=== PATIENT | female | born 1950 | race Hispanic/Latino ===

== ENCOUNTER 2019-01-11 10:27 | Observation (INO) | payer MEDICARE ==
--- NOTE | 2019-01-05 13:38 | Anesthesia Consultation ---
Anesthesia Consult and Med Hx Date of service: 01/12/19 - Airway Anesthetic Teeth Evaluation: Good, Partials ROM Head & Neck: Adequate Mental/Hyoid Distance: Adequate Mallampati Class: Class II Intubation Access Assessment: Good - Pre-Operative Health Status ASA Pre-Surgery Classification: ASA3 Proposed Anesthetic Plan: General, Spinal (SAB, GA if needed) - Pulmonary Hx Smoking: No Hx Sleep Apnea: No (SADIE PRE SCREEN HIGH RISK) - Cardiovascular System Hx Hypertension: Yes (SINCE . +Cardiac clearance) Hx Coronary Artery Disease: No - Central Nervous System Hx Psychiatric Problems: Yes (Depression) - Gastrointestinal Hx Ulcer: Yes - Endocrine Hx Renal Disease: Yes (Has UTI and on ABX) Hx Insulin Dependent Diabetes: Yes - Other Systems Hx Cancer: No - Additional Comments Anesthesia Medical History Comments: Had shoulder surgery at [facility] in 2003 and was admitted to hospital for low BP. Lexiscan 12/15 no ischemia; ECHO 12/25 normal mild LVH
[2019-01-09 10:57] LABS: Bacteria,Urine 1+ /HPF (Negative); Bilirubin,Urine NEG (Negative); Blood,Urine NEG (Negative); Color,Urine Yellow (Yellow); Mucus,Urine FEW /HPF; Protein,Urine <15 mg/dL mg/dL (Negative); Urobilinogen,Urine < 2.0 mg/dL (<2.0)
[~2019-01-11 10:27] MED LIST: BACITRACIN IR ONE; CLORPACTIN WCS-90 IR ONE; MARCAINE 0.25% INFILTRATI ONE; MORPHINE IM ONE; NACL 0.9% IV ONE; POLYMYXIN B SULFATE IV ONE; TORADOL PO ONE
[2019-01-11] MEDS ORDERED: TRANEXAMIC ACID ONE (11:17)
[2019-01-11] MEDS ORDERED: MARCAINE 0.25% INFILTRATI ONE ×2 (11:17→15:37)
[2019-01-11] MEDS ORDERED: TORADOL ONE (11:17)
[2019-01-11] MEDS ORDERED: MORPHINE ONE (11:18)
[2019-01-11] MEDS ORDERED: POLYMYXIN B SULFATE IV ONE ×2 (11:18→15:20)
[2019-01-11] MEDS ORDERED: NACL 0.9% 200 ML ONE (11:18)
[2019-01-11] MEDS ORDERED: CLORPACTIN WCS-90 IR ONE ×2 (11:18→15:30)
[2019-01-11] MEDS ORDERED: BACITRACIN ONE (11:32)
--- NOTE | 2019-01-11 11:38 | Anesthesia Day of Surgery ---
Anesthesia Day of Surgery - Day of Surgery Patient Examined: Yes Patient H&P Reviewed: Yes Patient is NPO: Yes
[2019-01-11] MEDS ORDERED: NACL 0.9% 1000 ML 1,000 ML ONE ×2 (12:02→17:34)
[2019-01-11] MEDS ORDERED: ANCEF/STERILE WATER 2 GM/20 ML IV NR (13:00)
[2019-01-11] MEDS ORDERED: MARCAINE-EPI 0.5%-1:200,000 INFILTRATI ONE (13:25)
[2019-01-11] MEDS ORDERED: ZEMURON IV ONE (13:28)
[2019-01-11] MEDS ORDERED: XYLOCAINE MPF 2% ONE (13:28)
[2019-01-11] MEDS ORDERED: DIPRIVAN 10 MG/ML IV ONE (13:29)
[2019-01-11] MEDS ORDERED: SUBLIMAZE ONE (13:29)
[2019-01-11] MEDS ORDERED: TRANEXAMIC ACID IV ONE (13:45)
[2019-01-11] MEDS ORDERED: NACL 0.9% IV ONE (13:45)
[2019-01-11] MEDS ORDERED: ZOFRAN IV PRN ×3 (13:53→17:06)
[2019-01-11] MEDS ORDERED: ROBINUL ONE (13:53)
[2019-01-11] MEDS ORDERED: PHENYLEPHRINE/NS Syringe 1,000 MCG/10 ML IV ONE (13:53)
[2019-01-11] MEDS ORDERED: SODIUM CHLORIDE FLUSH SYRINGE 10 ML IV PRN (13:53)
[2019-01-11] MEDS ORDERED: PROVENTIL IH PRN (13:53)
[2019-01-11] MEDS ORDERED: DECADRON ONE (13:53)
[2019-01-11] MEDS ORDERED: ZOFRAN ONE (13:53)
[2019-01-11] MEDS ORDERED: PERCOCET 5/325 PO PRN (13:53)
[2019-01-11] MEDS ORDERED: BLOXIVERZ ONE (13:53)
--- NOTE | 2019-01-11 13:57 | History and Physical Report ---
History of Present Illness Date of admission: 01/11/19 13:47 Chief complaint: My knee was hurting History of present illness: 68 YO Female with MO, Obesity Hypoventilation, GERD, Depression, HTN, DJD admitted directly at the request of Dr. Herrmann. Pt seen and evaluated upon arrival to her room. Pt deneis fever, chills, CP, palpitations, NVD, Trauma, Productive cough, or recent ill contacts. Pt denies pain. No reported nursing event. Pt found to have evidence of UTI and treated wit IV antibiotic therapy. Past History Past Medical History: other (see hpi) Past Surgical History: total knee replacement Social history: , lives with family. denies: smoking, alcohol abuse, prescription drug abuse Family history: hypertension Medications and Allergies Allergies Allergy/AdvReac Type Severity Reaction Status Date / Time codeine Allergy Anaphylaxis Verified 12/30/18 10:41 shellfish derived Allergy Anaphylaxis Verified 12/30/18 10:41 shrimp Allergy Anaphylaxis Verified 12/30/18 10:41 milk AdvReac Diarrhea Verified 12/30/18 10:41 Home Medications Medication Instructions Recorded Confirmed Last Taken Type Calcium Carbonate [Calcium 600MG 600 mg PO DAILY 12/30/18 01/11/19 01/10/19 09:00 History TAB] Cholecalciferol (Vitamin D3) 2,000 unit PO QDAY 12/30/18 01/11/19 01/10/19 09:00 History [Vitamin D3 2,000 UNIT CAP] Citalopram [celeXA] 10 mg PO QDAY 12/30/18 01/11/19 01/10/19 09:00 History Gabapentin [Neurontin] 300 mg PO QHS 12/30/18 01/11/19 01/11/19 09:00 History Insulin Detemir [Levemir VIAL] 28 unit SQ BID 12/30/18 01/11/19 01/10/19 18:00 History Lispro Insulin [HumaLOG] 18 unit SQ TID 12/30/18 01/11/19 01/10/19 18:00 History Losartan/Hydrochlorothiazide 1 each PO DAILY 12/30/18 01/11/19 01/10/19 09:00 History [Losartan-Hctz 100-25 mg Tab] Lovastatin [Altoprev] 40 mg PO DAILY 12/30/18 01/11/19 01/10/19 09:00 History Magnesium Oxide [Magnesium] 400 mg PO DAILY 12/30/18 01/11/19 01/10/19 09:00 History Metoprolol [Lopressor TAB] 50 mg PO DAILY 12/30/18 01/11/19 01/11/19 09:00 History Multivit-Min/Iron/Folic/Zam960 1 each PO DAILY 12/30/18 01/11/19 01/10/19 09:00 History [Hair, Skin and Nails Caplet] Oxybutynin [Ditropan] 5 mg PO BID 12/30/18 01/11/19 01/10/19 09:00 History Apixaban [Eliquis] 2.5 mg PO Q12HR #24 tablet 01/12/19 Unknown Rx Aspirin [Adult Aspirin] 81 mg PO DAILY #30 01/12/19 Unknown Rx Calcium Carbonate [Tums 500MG CHEW] 500 mg PO QDAY #30 tablet 01/12/19 Unknown Rx Magnesium Oxide [Mag-Ox] 400 mg PO QDAY #7 tablet 01/12/19 Unknown Rx Pravastatin [Pravachol] 40 mg PO QHS #30 tablet 01/12/19 Unknown Rx oxyCODONE /ACETAMINOPHEN [Percocet 1 tab PO Q6H PRN #10 tablet 01/12/19 Unknown Rx 5/325 mg] Active Meds: Active Medications Cefazolin Sodium (Ancef/Sterile Water 2 Gm/20 Ml) 2 gm IV PREOP NR Stop: 01/11/19 23:59 Review of Systems Constitutional: no weight loss, no weight gain, no fever, no chills Ears, nose, mouth and throat: no ear pain, no ear discharge, no tinnitis, no nose pain, no nasal congestion, no nasal discharge Breasts: no change in shape, no swelling, no mass Cardiovascular: no chest pain, no orthopnea, no rapid/irregular heart beat, no edema, no syncope Respiratory: no cough, no cough with sputum, no shortness of breath Gastrointestinal: no nausea, no vomiting, no diarrhea, no constipation, no change in bowel habits, no hematemesis Genitourinary Female: no pelvic pain, no flank pain, no menorrhagia, no dysuria, no urinary frequency, no stress incontinence, no post void dribbling, no incomplete emptying, no mixed incontinence Rectal: no pain, no incontinence, no bleeding Musculoskeletal: no neck stiffness, no neck pain, no arm numbness/tingling, no leg numbness/tingling Integumentary: no rash, no pruritis, no redness, no sores, no wounds, no jaundice Neurological: no transient paralysis, no paralysis, no weakness, no parathesias, no numbness, no tingling, no seizures, no syncope Psychiatric: no anxiety, no memory loss, no change in sleep habits, no sleep disturbances, no insomnia, no hypersomnia Endocrine: no cold intolerance, no heat intolerance, no polyphagia, no excessive thirst, no polydipsia, no polyuria, no excessive sweating, no flushing Hematologic/Lymphatic: no easy bruising, no easy bleeding, no lymphadenopathy, no lymphedema Allergic/Immunologic: no urticaria, no allergic rhinitis, no wheezing, no persistent infections, no anaphylaxis, no angioedema Exam - Constitutional Vitals: Temp Pulse Resp BP Pulse Ox 97.8 F 58 L 20 175/73 99 01/05/19 13:00 01/05/19 13:00 01/05/19 13:00 01/05/19 13:00 01/05/19 13:00 General appearance: Present: no acute distress, obese - EENT Eyes: Present: PERRL ENT: hearing intact, clear oral mucosa - Neck Neck: Present: supple, normal ROM - Respiratory Respiratory effort: normal Respiratory: bilateral: CTA - Cardiovascular Heart Sounds: Present: S1 & S2. Absent: rub, click - Extremities Extremities: pulses symmetrical, No edema Peripheral Pulses: within normal limits - Abdominal General gastrointestinal: Present: soft, non-tender, non-distended, normal bowel sounds Female genitourinary: Present: normal - Integumentary Integumentary: Present: clear, warm, dry - Musculoskeletal Musculoskeletal: gait normal, strength equal bilaterally - Psychiatric Psychiatric: appropriate mood/affect, intact judgment & insight - Neurologic Neurologic: CNII-XII intact, moves all extremities Results - Labs CBC & Chem 7: 01/12/19 07:19 01/12/19 07:19 Labs: Abnormal lab results 01/11/19 Range/Units 11:46 POC Glucose 159 H (70-105) Assessment and Plan - Patient Problems (1) DJD (degenerative joint disease) Current Visit: Yes Status: Acute Plan to address problem: S/P Total Knee Replacement. (2) HTN (hypertension) Current Visit: Yes Status: Acute Qualifiers: Hypertension type: essential hypertension Qualified Code(s): I10 - Essential (primary) hypertension Plan to address problem: monitor BP q shift, continue medical management (3) UTI (urinary tract infection) Current Visit: Yes Status: Acute Qualifiers: Encounter type: initial encounter Plan to address problem: IV antibiotic therapy, CBc, urinalysis (4) Obesity hypoventilation syndrome Current Visit: Yes Status: Acute Plan to address problem: supplemental oxygen, nebulizer therapy, pulse oximetry, early ambulation, (5) DVT prophylaxis Current Visit: Yes Status: Acute Plan to address problem: SCD to BLE while in bed, prophylaxis as per ortho surgery.
[2019-01-11] MEDS ORDERED: D50W (25GM) Syringe IV PRN (15:00)
[2019-01-11] MEDS ORDERED: TYLENOL PO PRN (15:00)
[2019-01-11] MEDS ORDERED: BACITRACIN IR ONE (15:20)
[2019-01-11] MEDS ORDERED: TORADOL IV ONE (15:37)
[2019-01-11] MEDS ORDERED: MORPHINE IM ONE (15:37)
[2019-01-11] MEDS ORDERED: DILAUDID ONE (15:58)
[2019-01-11] MEDS ORDERED: MILK OF MAGNESIA PO PRN (16:13)
[2019-01-11] MEDS ORDERED: PHENERGAN PR PRN (16:13)
[2019-01-11] MEDS ORDERED: NORCO 7.5/325 PO PRN (16:21)
--- NOTE | 2019-01-11 16:24 | Progress Note ---
Subjective Date of service: 01/11/19 Interval history: S/PTKA right side Pillow under ankl;e Ice pacs PT/OT DVT PROPHYLAXSIS Objective Vital signs: Vital Signs - 12hr 01/11/19 01/11/19 10:54 11:00 Temperature 98.2 F 98.2 F Pulse Rate 69 69 Respiratory 20 20 Rate Blood Pressure 177/73 177/73 O2 Sat by Pulse 97 97 Oximetry - Labs Labs: Abnormal lab results 01/11/19 Range/Units 11:46 POC Glucose 159 H (70-105)
[2019-01-11] MEDS ORDERED: SODIUM CHLORIDE FLUSH SYRINGE 10 ML IV NR (17:00)
[2019-01-11] MEDS: DILAUDID IV PRN ×2 (17:14→17:24)
--- NOTE | 2019-01-11 17:40 | XRay Report ---
RIGHT KNEE 2 VIEWS INDICATION / CLINICAL INFORMATION: Postop TKA COMPARISON: None available. FINDINGS: BONES / JOINT(S): No acute fracture or subluxation. Status post right total knee arthroplasty SOFT TISSUES: Postoperative changes are noted in the soft tissue ADDITIONAL FINDINGS: None. Signer Name: Gregory Abarca MD Signed: 01/11/2019 5:36 PM Workstation Name: [id number]
--- NOTE | 2019-01-11 17:50 | Post Anesthesia Evaluation ---
- Post Anesthesia Evaluation Patient Participated: Yes Airway Patent: Yes Stable Respiratory Function: Yes Nausea/Vomiting: No Temp > 96.8F: Yes Pain Manageable: Yes Adequeate Hydration: Yes Anesthesia Complications: No Block Receding Appropriately: Not Applicable Patient on Ventilator: No
[2019-01-11] MEDS: TORADOL IV SCH ×2 (18:26→23:30)
[2019-01-11] MEDS: NACL 0.9% 1000 ML 1,000 ML IV SCH (18:27)
[2019-01-11] MEDS: HumaLOG SUB-Q SCH (18:45)
--- NOTE | 2019-01-11 21:13 | Operative Report ---
PREOPERATIVE DIAGNOSES: 1. Severe advanced osteoarthritis, right knee joint. 2. Varus deformity, right knee fixed varus deformity. POSTOPERATIVE DIAGNOSES: 1. Severe advanced osteoarthritis, right knee joint. 2. Fixed flexion deformity, right knee. 3. Obesity. 4. Synovial hypertrophy, synovial proliferation. PROCEDURES PERFORMED: 1. Right total knee replacement. 2. Partial synovectomy, right knee joint. COMPLICATIONS: None. BLOOD LOSS: Minimal. IMPLANTS USED: Garcia and Nephew Legion Oxinium femoral component, size 4 narrow right side, tibial tray size 3, Prolong Poly-S, polyethylene liner 9 mm, patella 29 mm, 3 post 7.5 mm thick. Cement Palacos R+G. BRIEF HISTORY: The patient had a painful right knee arthritic knee, severe advanced arthritis, failed conservative treatment, opted to go for surgical intervention. Risks, benefit discussed, informed consent obtained, brought to the hospital for the procedure. DETAILS OF THE OPERATIVE REPORT: The patient was taken to the operating room. After smooth general endotracheal anesthesia, all the bony prominences were carefully padded, placed supine on the operating table. Thigh tourniquet was placed. Right knee, right lower extremity prepped and draped in sterile fashion. Antibiotic given 3 grams Ancef half an hour before the procedure along with a gram of TXA. Leg elevated, Esmarch used and tourniquet inflated to 350 mmHg. Longitudinal incision made over anterior aspect of the knee, exposing extensive mechanism. Arthrotomy performed. Patella displaced laterally. Gross finding revealed severe advanced degenerative arthritis. Subperiosteal dissection was continued around the proximal medial tibia as necessary. Soft tissue release was performed to correct the fixed angular deformity. Drill was used to open the femoral canal. Distal intramedullary femoral cutting guide was placed. Distal femur resected 5-degree valgus angle. Epicondylar access apex was determined. Femoral sizing guide was placed, appropriate components selected. Anteroposterior condyles were then resected with oscillating saw. Extramedullary tibial cutting guide was placed, proximal tibia resected perpendicular to the long axis of tibia. Lamina spreaders placed between femur and tibia. Arthritic ACL and PCL ligaments were removed. Medial and lateral meniscectomy performed. Posterior osteophytes on the medial side was removed as well. Once this was done, gap balancing was achieved by doing appropriate release on the medial side. Once this was achieved, alignment checked with alignment starla. Tibia was then prepared by tibial reaming broach system by placing the tibial tray in proper position, proper external rotation. Femur was then prepared for the box using Garcia and Nephew trial femur using reaming and punch technique. Trial liner was then placed to get 9 liner. We had great stability, full extension, full flexion, stable throughout range of motion. No signs of instability. Patella was prepared by patellar reaming system prepared for three post-patella. Prepatellar thickness 22 mm, post-patellar thickness ____ mm. Osteophytes around the patella was removed. Synovium excised as well. Patella tracked central throughout range of motion. Trial components were then removed. We thoroughly washed the knee area with antibiotic-soaked normal saline followed by normal saline and cementing of the knee was performed. Tibia was cemented first set in proper position, proper external rotation and packed in place. Excess cement was removed. Femur was then cemented in proper position, proper external rotation and packed in place. Excess cement was removed. Trial liner was then placed, cementing of the patella performed, compressed in place. Excess cement removed. Once the cement was hardened, real tibial articulating surface was implanted and locked in place. Knee again moved through range of motion and found to be extremely stable. Throughout range of motion, patella tracked central. Tourniquet released. Hemostasis achieved. No active bleeder as such. Thorough washing was performed with antibiotic-soaked normal saline. Clorpactin followed by normal saline and arthrotomy closed with a combination of 0 Vicryl sutures and #2 Quill sutures, subcutaneous tissue closed with 0 and 2-0 Vicryl interrupted sutures. Given the tenuous soft tissue on the inferior aspect of the arthrotomy where there was more fatty tissue and the tissue was not of good quality, they were supplemented with #2 nylon on the inferior part as well with three stitches. Good closure was commenced. Subcutaneous tissue was closed with 0 and 2-0 Vicryl interrupted sutures. Skin was closed with Monocryl. Aquacel dressing done. Jeremy wrap applied. The patient tolerated the procedure well, shifted to recovery room in stable condition. Sponge and needle count was correct. JOB# [id number] SK/NTS
[2019-01-11] MEDS ORDERED: NEURONTIN PO SCH (22:00)
[2019-01-11] MEDS ORDERED: PRAVACHOL PO SCH (22:00)
[2019-01-11] MEDS: NEURONTIN PO SCH (22:47)
[2019-01-11] MEDS: ELIQUIS PO SCH (22:48)
[2019-01-11] MEDS: DITROPAN PO SCH (22:48)
[2019-01-11] MEDS: ceFAZolin 3 GM in NACL 0.9% 100 ML IV NR (23:02)
[2019-01-12] MEDS ORDERED: ANCEF/STERILE WATER 2 GM/20 ML IV NR (00:01)
[2019-01-12] MEDS: SODIUM CHLORIDE FLUSH SYRINGE 10 ML IV SCH ×2 (00:13→15:14)
[2019-01-12] MEDS: HumaLOG SUB-Q SCH ×3 (00:19→15:17)
[2019-01-12] MEDS: TORADOL IV SCH ×2 (06:05→12:39)
[2019-01-12] MEDS: ceFAZolin 3 GM in NACL 0.9% 100 ML IV NR (06:06)
[2019-01-12] MEDS: NACL 0.9% 1000 ML 1,000 ML IV SCH (06:07)
[2019-01-12] MEDS: NEURONTIN PO SCH ×2 (06:16→15:18)
[2019-01-12 07:42] LABS: Hemoglobin 11.6 gm/dl (10.1-14.3)
[2019-01-12 08:16] LABS: BUN/Creatinine Ratio 23; Blood Urea Nitrogen 16 mg/dL (7-17); Calcium 7.8 mg/dL (8.4-10.2); Hemolysis Index 11
[2019-01-12] MEDS ORDERED: TOPROL XL PO SCH (10:00)
[2019-01-12] MEDS ORDERED: [UNRECOGNIZED DRUG - OTHER] PO SCH (10:00)
[2019-01-12] MEDS ORDERED: ROCEPHIN/NS 1 GM/50 ML 1 GM/50 ML BAG IV SCH (10:00)
[2019-01-12] MEDS ORDERED: celeXA PO SCH (10:00)
[2019-01-12] MEDS ORDERED: NON-FORMULARY (Lovastatin [Altoprev] 40 MG) PO SCH (10:00)
[2019-01-12] MEDS ORDERED: VITAMIN D3 PO SCH (10:00)
[2019-01-12] MEDS ORDERED: IRON PO SCH (10:00)
[2019-01-12] MEDS ORDERED: NON-FORMULARY (Losartan/Hydrochlorothiazide [Losartan-Hctz 100-25 Mg Tab] 1 EACH) PO SCH (10:00)
[2019-01-12] MEDS ORDERED: MAG-OX PO SCH (10:00)
[2019-01-12] MEDS ORDERED: MAGNESIUM OXIDE 400 MG PO SCH (10:00)
[2019-01-12] MEDS ORDERED: TUMS PO SCH (10:00)
[2019-01-12] MEDS ORDERED: THERAGRAN Tab PO SCH (10:00)
[2019-01-12] MEDS ORDERED: NON-FORMULARY (Cholecalciferol (Vitamin D3) [Vitamin D3 2,000 Unit Cap] 2,000 UNIT) PO SCH (10:00)
[2019-01-12] MEDS ORDERED: FOLIC PO SCH (10:00)
[2019-01-12] MEDS ORDERED: COZAAR PO SCH (10:00)
[2019-01-12] MEDS ORDERED: HCTZ PO SCH (10:00)
[2019-01-12] MEDS ORDERED: MULTIVIT MIN PO SCH (10:00)
[2019-01-12] MEDS ORDERED: NON-FORMULARY (Calcium Carbonate [Calcium 600mg Tab] 600 MG) PO SCH (10:00)
[2019-01-12] MEDS: DITROPAN PO SCH (10:41)
[2019-01-12] MEDS: ELIQUIS PO SCH (10:47)
--- NOTE | 2019-01-12 11:39 | Progress Note ---
Hospitalist Physical - Constitutional Vitals: Temp Pulse Resp BP Pulse Ox 98.5 F 84 18 147/57 95 01/12/19 07:28 01/12/19 10:46 01/12/19 07:28 01/12/19 10:46 01/12/19 09:01 Results - Labs CBC & Chem 7: 01/12/19 07:19 01/12/19 07:19 Labs: Laboratory Last Values Hgb 11.6 gm/dl (10.1-14.3) 01/12/19 07:19 Hct 35.0 % (30.3-42.9) 01/12/19 07:19 Sodium 144 mmol/L (137-145) 01/12/19 07:19 Potassium 4.8 mmol/L (3.6-5.0) 01/12/19 07:19 Chloride 105.5 mmol/L (98-107) 01/12/19 07:19 Carbon Dioxide 22 mmol/L (22-30) 01/12/19 07:19 Anion Gap 21 mmol/L 01/12/19 07:19 BUN 16 mg/dL (7-17) 01/12/19 07:19 Creatinine 0.7 mg/dL (0.7-1.2) 01/12/19 07:19 Estimated GFR > 60 ml/min 01/12/19 07:19 BUN/Creatinine Ratio 23 % 01/12/19 07:19 Glucose 191 mg/dL (65-100) H 01/12/19 07:19 POC Glucose 190 (70-105) H 01/12/19 06:42 Calcium 7.8 mg/dL (8.4-10.2) L 01/12/19 07:19 Urine Color Yellow (Yellow) 01/09/19 10:15 Urine Turbidity Slightly-cloudy (Clear) 01/09/19 10:15 Urine pH 5.0 (5.0-7.0) 01/09/19 10:15 Ur Specific Fleming 1.026 (1.003-1.030) 01/09/19 10:15 Urine Protein <15 mg/dl mg/dL (Negative) 01/09/19 10:15 Urine Glucose (UA) Neg mg/dL (Negative) 01/09/19 10:15 Urine Ketones Neg mg/dL (Negative) 01/09/19 10:15 Urine Blood Neg (Negative) 01/09/19 10:15 Urine Nitrite Neg (Negative) 01/09/19 10:15 Urine Bilirubin Neg (Negative) 01/09/19 10:15 Urine Urobilinogen < 2.0 mg/dL (<2.0) 01/09/19 10:15 Ur Leukocyte Esterase Mod (Negative) 01/09/19 10:15 Urine WBC (Auto) 17.0 /HPF (0.0-6.0) H 01/09/19 10:15 Urine RBC (Auto) 8.0 /HPF (0.0-6.0) 01/09/19 10:15 U Epithel Cells (Auto) 14.0 /HPF (0-13.0) H 01/09/19 10:15 Urine Bacteria (Auto) 1+ /HPF (Negative) 01/09/19 10:15 Ur Transition Epith Cell 3 /HPF 01/09/19 10:15 Urine Mucus Few /HPF 01/09/19 10:15 Blood Type A POSITIVE 01/11/19 11:39 Antibody Screen Negative 01/11/19 11:39 Active Medications - Current Medications Current Medications: Generic Name Dose Route Start Last Admin Trade Name Freq PRN Reason Stop Dose Admin Acetaminophen 650 mg 01/11/19 15:00 Tylenol PO Q4H PRN Pain MILD(1-3)/Fever >100.5/BRAVO Acetaminophen/Hydrocodone Bitart 1 each 01/11/19 16:21 01/12/19 10:55 [place] 7.5/325 PO 1 each Q4H PRN Administration Pain, Moderate (4-6) Albuterol 2.5 mg 01/11/19 13:53 Proventil IH Q4HRT PRN Shortness Of Breath Apixaban 2.5 mg 01/11/19 22:00 01/12/19 10:47 Eliquis PO 2.5 mg Q12HR RYNE Administration Protocol Calcium Carbonate/Glycine 500 mg 01/12/19 10:00 01/12/19 10:45 Tums PO 500 mg QDAY RYNE Administration Celecoxib 200 mg 01/11/19 22:00 01/12/19 10:45 Celebrex PO 200 mg BID RYNE Administration Cholecalciferol 2,000 unit 01/12/19 10:00 01/12/19 10:46 Vitamin D3 PO 2,000 unit QDAY RYNE Administration Citalopram Hydrobromide 10 mg 01/12/19 10:00 01/12/19 10:48 Celexa PO 10 mg QDAY RYNE Administration Dextrose 50 ml 01/11/19 15:00 D50w (25gm) Syringe IV PRN PRN Hypoglycemia Gabapentin 300 mg 01/11/19 22:00 01/12/19 06:16 Neurontin PO 300 mg Q8HR RYNE Administration Hydrochlorothiazide 25 mg 01/12/19 10:00 01/12/19 10:44 Hctz PO 25 mg QDAY RYNE Administration Sodium Chloride 1,000 mls @ 75 mls/hr 01/11/19 15:00 01/12/19 06:07 Nacl 0.9% 1000 Ml IV 75 mls/hr DIRECT RYNE Administration Cefazolin Sodium 3 gm/ Sodium 100 mls @ 100 mls/30 min 01/11/19 22:00 01/12/19 06:06 Chloride IV 01/12/19 14:29 100 mls/30 min Q8HR NR Administration Protocol Ceftriaxone Sodium 1 gm in 50 mls @ 100 mls/hr 01/12/19 10:00 01/12/19 10:34 Rocephin/Ns 1 Gm/50 Ml IV 100 mls/hr Q24HR RYNE Administration Protocol Insulin Human Lispro 0 unit 01/11/19 18:00 01/12/19 07:06 Humalog SUB-Q 2 unit Q6HR RYNE Administration Protocol Ketorolac Tromethamine 15 mg 01/11/19 18:00 01/12/19 06:05 Toradol IV 01/12/19 12:01 15 mg Q6HR RYNE Administration Losartan Potassium 100 mg 01/12/19 10:00 01/12/19 10:40 Cozaar PO 100 mg QDAY RYNE Administration Magnesium Hydroxide 30 ml 01/11/19 16:13 Milk Of Magnesia PO Q4H PRN Constipation Magnesium Oxide 400 mg 01/12/19 10:00 01/12/19 10:42 Mag-Ox PO 400 mg QDAY RYNE Administration Metoprolol Succinate 50 mg 01/12/19 10:00 01/12/19 10:46 Toprol Xl PO 50 mg DAILY RYNE Administration Multivitamins 1 each 01/12/19 10:00 01/12/19 10:41 Theragran Tab PO 1 each DAILY RYNE Administration Ondansetron HCl 4 mg 01/11/19 16:13 Zofran IV Q8H PRN Nausea And Vomiting Oxybutynin Chloride 5 mg 01/11/19 22:00 01/12/19 10:41 Ditropan PO 5 mg BID RYNE Administration Oxycodone/Acetaminophen 1 tab 01/11/19 13:53 Percocet 5/325 PO Q6H PRN Pain, Moderate (4-6) Pravastatin Sodium 40 mg 01/11/19 22:00 01/11/19 23:17 Pravachol PO 40 mg QHS RYNE Administration Promethazine HCl 25 mg 01/11/19 16:13 01/11/19 20:07 Phenergan NM 25 mg Q6H PRN Administration Nausea And Vomiting Sodium Chloride 10 ml 01/11/19 22:00 01/12/19 00:13 Sodium Chloride Flush Syringe 10 Ml IV 10 ml BID RYNE Administration Sodium Chloride 10 ml 01/11/19 13:53 Sodium Chloride Flush Syringe 10 Ml IV PRN PRN LINE FLUSH Sodium Chloride 10 ml 01/11/19 17:00 Sodium Chloride Flush Syringe 10 Ml IV 01/14/19 16:59 PRN NR
--- NOTE | 2019-01-12 11:49 | Progress Note ---
Subjective Date of service: 01/12/19 Interval history: pod1 s/p TKA left side AVSS, NVI DRESSING DRY PAIN UNDER CONTROL WITY MEDS Calf soft NT NVI doing well with PT DC plan once clear by medicine , PT and once HH and Home PT arrangements made with TKA DC INstruction sheet and with Eliquis script FOR 12 DAYS followed by [facility] after that BIS for total 4 weeks of asprin. Objective Vital signs: Vital Signs - 12hr 01/12/19 01/12/19 01/12/19 00:19 05:17 07:28 Temperature 98.2 F 97.8 F 98.5 F Pulse Rate 72 64 Respiratory 17 17 18 Rate Blood Pressure 123/61 115/49 147/57 O2 Sat by Pulse 98 98 95 Oximetry 01/12/19 01/12/19 01/12/19 07:30 09:01 10:40 Temperature Pulse Rate 84 84 Respiratory Rate Blood Pressure 147/57 O2 Sat by Pulse 95 Oximetry 01/12/19 10:46 Temperature Pulse Rate 84 Respiratory Rate Blood Pressure 147/57 O2 Sat by Pulse Oximetry - Labs CBC & BMP: 01/12/19 07:19 01/12/19 07:19 Labs: Abnormal lab results 01/11/19 01/11/19 01/12/19 Range/Units 17:13 23:55 06:42 Glucose (65-100) mg/dL POC Glucose 193 H 241 H 190 H (70-105) Calcium (8.4-10.2) mg/dL 01/12/19 Range/Units 07:19 Glucose 191 H (65-100) mg/dL POC Glucose (70-105) Calcium 7.8 L (8.4-10.2) mg/dL
--- NOTE | 2019-01-12 11:55 | Discharge Summary ---
Providers - Providers Date of Admission: 01/11/19 13:47 Attending physician: RUDDY HANSEN MD 01/11/19 16:13 Consult to Case Management [CONS] Routine Services Needed at Discharge: Home Health Services Physical Therapy Occupational Therapy DME Equipment Program Mgr Occupational Therapy Evaluate and Treat [CONS] Routine Comment: Reason For Exam: postop tka right 01/11/19 16:18 Physical Therapy Evaluation and Treat [CONS] Routine Comment: Reason For Exam: postop tka right 01/11/19 17:15 Consult to Physician [CONS] Routine Comment: Consulting Provider: JHONNY ESTRADA Physician Instructions: Reason For Exam: DJD Primary care physician: SULTANA YEPEZ Hospitalization Condition: Stable Hospital course: Patient seen today post surgery, PT and also Dr VERMA at bedside, patient is doing well and stable for discharge She was treated for UTI prior to her surgery and received IV abx prior to and post surgery She has no fever or dysuria at this time S/P Right TKA HTN HYPERLIPIDEMIA DM Type 2 vitamin D deficincy Polyarthritis Morbid Obesity Major Depressive Disorder Anxiety Disorder Stress incontinence cough Disposition: [id number]/TX-06 HOME UNDER HOME HL[facility] Time spent for discharge: 35 mins Exam - Constitutional Vitals: Temp Pulse Resp BP Pulse Ox 98.5 F 84 18 147/57 95 01/12/19 07:28 01/12/19 10:46 01/12/19 07:28 01/12/19 10:46 01/12/19 09:01 Plan Activity: advance as tolerated, fall precautions Diet: low fat Special Instructions: record daily weights, record daily BP diary, physical therapy, occupational therapy Follow up with: SULTANA YEPEZ MD [Primary Care Provider] - 7 Days JHONNY ESTRADA MD [Staff Physician] - 7 Days Prescriptions: Pravastatin [Pravachol] 40 mg PO QHS #30 tablet Aspirin [Adult Aspirin] 81 mg PO DAILY #30 Apixaban [Eliquis] 2.5 mg PO Q12HR #24 tablet Magnesium Oxide [Mag-Ox] 400 mg PO QDAY #7 tablet oxyCODONE /ACETAMINOPHEN [Percocet 5/325 mg] 1 tab PO Q6H PRN #10 tablet PRN Reason: Pain, Moderate (4-6) Calcium Carbonate [Tums 500MG CHEW] 500 mg PO QDAY #30 tablet
[2019-01-12 12:25] VITALS: BP 149/58
== END 2019-01-12 13:00 | disposition home or self-care (01) ==
LOC: OR 10:27 → 3A 13:47 → INTOOBSV 13:47 → 3B-SURG 17:04 → EDSTATUS 01-12 12:00
PROVIDERS: ADMIT Internal Medicine; ATTEND Internal Medicine
DX: M17.11 Unilateral primary osteoarthritis, right knee (principal); M21.161 Varus deformity, not elsewhere classified, right knee; M67.261 Synovial hypertrophy, not elsewhere classified, right lower leg; E66.01 Morbid (severe) obesity due to excess calories; Z68.42 Body mass index [BMI] 45.0-49.9, adult
CPT/HCPCS: 27334; 27447; 36415; 73560; 80048; 81001; 82962; 85014; 85018; 86850; 86900; 86901; 87086; 87116; 88305; 96365; 96366; 96372; 96375; 96376; 97110; 97116; 97162; A9270; C1713; C1776; G0378; J0690; J0696; J1100; J1170; J1885; J2270; J2370; J2405; J2704; J2710; J3010; J7030; J1815